=== PATIENT | female | born 1990 | race Caucasian/White ===

== ENCOUNTER 2020-12-23 17:35 | Emergency (ER) | payer OTHER, MEDICAID, SELFPAY ==
[2020-12-23 17:44] VITALS: BP 147/77; PULSE 76; RESP 12; TEMP 36.7; O2SAT 100; BMI 29.0
--- NOTE | 2020-12-23 20:22 | ED.NECK ---
HPI - Neck Pain/Injury General Chief Complaint: Neck Pain/Injury Stated Complaint: lt shoulder, neck pain, stiffness Time Seen by Provider: 12/23/20 19:41 Mode of arrival: Ambulatory History of Present Illness HPI Narrative: Patient complains of reproducible left-sided neck pain increased with turning head to the left as well as tilting down and up. No previous neck problems. No numbness or tingling weakness to the hands or feet. No bowel or bladder incontinence or retention. Patient states in the past week she has visited to different homes including her mother's place out here as well as her daughters/father residence, sleeping on couch. She awoke today from a nap and got a pressure here without any difficulties and no neck pain however, developed left-sided neck pain when she was fixing her hair. Since then has persistent left-sided neck pain. Related Data Previous Rx's Medication Instructions Recorded acyclovir 400 mg tablet 400 mg PO BID #60 tab 03/09/17 baclofen 20 mg tablet 20 mg PO TID PRN #14 tab 12/23/20 Allergies Allergy/AdvReac Type Severity Reaction Status Date / Time No Known Drug Allergies Allergy Unknown Unverified 12/23/20 17:46 [NO KNOWN DRUG ALLERGIES] Review of Systems Review of Systems Narrative: GENERAL: Denies chills, fatigue, malaise, fever, sweats. HEENT: Denies sinus pain, ear pain, sore throat RESPIRATORY: Denies dyspnea, cough CARDIOVASCULAR: Denies chest pain, palpitations GASTROINTESTINAL: Denies nausea, vomiting, abdominal pain : Denies dysuria, frequency, hematuria MUSCULOSKELETAL: Complaint muscle denies bony pain SKIN: Denies rash, skin lesions NEUROLOGIC: Denies weakness, numbness ROS Unobtainable: All systems reviewed & are unremarkable except as noted in HPI and below Patient History Social History Smoking Status: Former smoker Smoking Status: Former smoker alcohol intake frequency: holidays/special occasions only Substance Use Type: does not use Exam Narrative Exam Narrative: GENERAL: in no distress, not toxic not dyspneic HEAD: Normocephalic. EYES: Pupils equal round No scleral icterus. No injection no discharge ENT: Mucous membranes moist. NECK: Trachea midline. Reproducible left paracervical and trapezius muscle pain and spasm. Increased pain with rotation head to left and tilting up and down. No midline tenderness or step-off. CARDIOVASCULAR: Regular rate and rhythm without murmurs RESPIRATORY: Clear to auscultation. Breath sounds equal bilaterally. No wheezes, rales, or rhonchi. GASTROINTESTINAL: Abdomen soft, non-tender EXTREMITIES: No gross deformities. BACK: No flank tenderness. NEURO: AOx4. Clear speech no facial droop light touch intact to bilateral face and hands or strong equal senior training specialist. Strong bilateral patellar reflexes. Steady self gait in hallway to the bathroom and back. No ataxia. Light touch intact to legs. SKIN: Warm and dry PSYCH: Not anxious, is cooperative Initial Vital Signs Initial Vital Signs: Vital Signs Temperature 98.0 F 12/23/20 17:44 Pulse Rate 76 12/23/20 17:44 Respiratory Rate 12 12/23/20 17:44 Blood Pressure 147/77 H 12/23/20 17:44 Pulse Oximetry 100 12/23/20 17:44 Course Course Course Narrative: No new issues during course of stay. Orders Ordered: ED Orders 12/23/20 21:14 XR cervical spine 2V or 3V Stat Discontinued Medications Ketorolac Tromethamine (Ketorolac 30 Mg/Ml Vial) 30 mg IM NOW ONE Stop: 12/23/20 21:15 Last Admin: 12/23/20 21:41 Dose: 30 mg Documented by: [email or web address] Reevaluation(s) Reevaluation #1: Pain is controlled. Reviewed x-ray results with patient. Agrees with treatment plan follow-up and prescription for muscle relaxers. Not toxic Time: 22:16 Vital Signs Vital signs: Vital Signs - 8 hr 12/23/20 17:44 12/23/20 22:25 12/23/20 22:40 Temperature 98.0 F Pulse Rate 76 72 66 Respiratory Rate 12 16 18 Blood Pressure 147/77 H 122/76 146/87 H Pulse Oximetry 100 98 100 MDM - Neck Pain/Injury Differential Diagnosis Differential diagnosis: Likely cervical radiculopathy, torticollis and strain of neck muscle Lab Data Labs: Point of Care Testing Test Results Negative Imaging Data X-ray cervical spine: Radiologist's Impression: [address] [id number] ReportSigned Patient: Mireille Sosa [facility]#: [id number]: 1990Acct:[id number]/Sex: 30 / FDate of Service: 12/23/20Loc: EDAccession Number: [id number] Procedure: XR cervical spine 2V or 3V Ordering Provider: Domingo Rangel MD PROCEDURE: XR CERVICAL SPINE 2V OR 3V INDICATIONS: Pain TECHNIQUE: 3 view(s) of the cervical spine were acquired. COMPARISON: None. FINDINGS: Bones: No fractures or dislocations to the C7-T1 level. Lateral masses of C1 and odontoid are not well visualized. No suspicious bony lesions. Soft tissues: No prevertebral soft tissue swelling. IMPRESSION: Lateral masses of C1 and odontoid are not well visualized. Otherwise, no visualized acute fracture or dislocation. However, if clinical concern and/or pain persist, short interval imaging followup in 7-10 days is recommended, as occult injury cannot be definitively excluded. Dictated by: Carie Matos M.D. on 12/23/2020 at 21:55 Approved by: Carie Matos M.D. on 12/23/2020 at 21:56 MDM Narrative Medical decision making narrative: Appropriate for discharge home. Neurovascularly intact. No neuro deficits. Likely muscle spasm from frequent traveling recently and sleeping in different neck support/bedding/couch. Exam reassuring. No known trauma. Patient desires discharge home Discharge Plan Departure Patient Disposition: Home Clinical Impression: Muscle spasms of neck Instructions: DI for Neck Pain Activity Restrictions/Additional Instructions: See family doctor within a week for recheck of your neck pain. May continue Tylenol or ibuprofen for pain as well. Warm packs may help to neck muscle as well. Return if worse if any questions or concerns. Prescriptions: New baclofen 20 mg tablet 20 mg PO TID PRN (Reason: Pain) Qty: 14 RF: 0 No Action acyclovir 400 MG tablet 400 mg PO BID Qty: 60 RF: 0 Referrals: Isabel Deras MD [Primary Care Provider] -
--- NOTE | 2020-12-23 21:14 | DI.RAD.S_ITS ---
PROCEDURE: XR CERVICAL SPINE 2V OR 3V INDICATIONS: Pain TECHNIQUE: 3 view(s) of the cervical spine were acquired. COMPARISON: None. FINDINGS: Bones: No fractures or dislocations to the C7-T1 level. Lateral masses of C1 and odontoid are not well visualized. No suspicious bony lesions. Soft tissues: No prevertebral soft tissue swelling. IMPRESSION: Lateral masses of C1 and odontoid are not well visualized. Otherwise, no visualized acute fracture or dislocation. However, if clinical concern and/or pain persist, short interval imaging followup in 7-10 days is recommended, as occult injury cannot be definitively excluded. Dictated by: Carie Matos M.D. on 12/23/2020 at 21:55 Approved by: Carie Matos M.D. on 12/23/2020 at 21:56
[2020-12-23] MEDS: KETOROLAC 30 MG/ML VIAL IM (21:41)
[2020-12-23 22:25] VITALS: BP 122/76; PULSE 72; RESP 16; O2SAT 98
[2020-12-23 22:40] VITALS: BP 146/87; PULSE 66; RESP 18; O2SAT 100
== END 2020-12-23 22:38 | disposition home or self-care (01) ==
PROVIDERS: Emergency Provider Emergency Medicine; PCP Specialist
DX: M62.838 Other muscle spasm (principal); M54.2 Cervicalgia
CPT/HCPCS: 72040; 81025; 96372; 99283; J1885